=== PATIENT | male | born 1960 | race Caucasian/White ===

== ENCOUNTER 2018-12-04 16:42 | Inpatient (IN) | payer BC, OTHER ==
[2018-12-04] MEDS: SOD CHLORIDE 0.9% 500 ML IV (17:17)
[2018-12-04] MEDS: KETOROLAC 15 MG INJ IV (17:18)
[2018-12-04 17:19] LABS: ADD MAN DIFF? NO
[2018-12-04 17:25] LABS: BASOPHIL # 0.1 10^3/ul (0.0-0.1); BASOPHILS % 0.5 % (0.0-2.0); EOSINOPHILS % 0.2 % (0.0-7.0); HEMATOCRIT 39.7 % (42.0-52.0); HEMOGLOBIN 13.8 g/dl (14.0-18.0); LYMPHOCYTES # 1.9 10^3/ul (0.8-2.9); LYMPHOCYTES % 10.9 % (15.0-51.0); MEAN CORPUSCULAR HEMOGLOBIN 30.7 pg (29.0-33.0); MEAN CORPUSCULAR HGB CONC 34.8 g/dl (32.0-37.0); MEAN CORPUSCULAR VOLUME 88.2 fl (82.0-101.0); MEAN PLATELET VOLUME 10.2 fl (7.4-10.4); MONOCYTE # 1.3 10^3/ul (0.3-0.9); MONOCYTES % 7.3 % (0.0-11.0); NEUTROPHIL # 14.2 10^3/ul (1.6-7.5); NEUTROPHILS % 80.5 % (39.0-77.0); PLATELET COUNT 277 10^3/UL (140-415)
[2018-12-04 17:25] LABS: WHITE BLOOD COUNT 17.6 10^3/ul (4.8-10.8)
[2018-12-04] MEDS: ONDANSETRON 4 MG INJ IV (17:41)
[2018-12-04] MEDS: HYDROmorphONE 1 MG/ML SYG IV (17:41)
[2018-12-04 17:51] LABS: ALANINE AMINOTRANSFERASE 30 IU/L (13-69); ALBUMIN 4.3 g/dl (3.3-4.9); ALBUMIN/GLOBULIN RATIO 1.19; ALKALINE PHOSPHATASE 47 IU/L (42-121); ANION GAP 12 (5-13); ASPARTATE AMINO TRANSFERASE 31 IU/L (15-46); BILIRUBIN,INDIRECT 0.5 mg/dl (0-1.1); BILIRUBIN,TOTAL 0.5 mg/dl (0.2-1.3); BLOOD UREA NITROGEN 20 mg/dl (7-20); CALCIUM 10.2 mg/dl (8.4-10.2); CARBON DIOXIDE 21 mmol/L (21-31); CHLORIDE 105 mmol/L (97-110); CREATININE 0.93 mg/dl (0.61-1.24); Estimated GFR > 60 mL/min (>60); GLUCOSE 326 mg/dl (70-220); LIPASE 40 U/L (23-300); SODIUM 138 mmol/L (135-144); TOTAL PROTEIN 7.9 g/dl (6.1-8.1)
[2018-12-04 17:59] LABS: TROPONIN-I < 0.012 ng/ml (0.000-0.120)
[2018-12-04] MEDS ORDERED: NACL 0.9% 3 ML SYG IV (19:00)
[2018-12-04] MEDS ORDERED: NITROGLYCERIN (SL) 0.4 MG TAB SL (19:00)
[2018-12-04] MEDS ORDERED: ONDANSETRON 4 MG INJ IV (19:00)
[2018-12-04] MEDS ORDERED: ACETAMINOPHEN 325 MG TAB PO (19:00)
[2018-12-04] MEDS: ENALAPRILAT 1.25 MG INJ IV (19:05)
[2018-12-04] MEDS: LABETALOL 100 MG TAB PO (20:45)
[2018-12-04] MEDS: LISINOPRIL 20 MG TAB PO (21:26)
[2018-12-04] MEDS: AMLODIPINE 5 MG TAB PO (21:27)
[2018-12-04] MEDS: LORAZEPAM 2 MG INJ IV (21:36)
[2018-12-04] MEDS: LORAZEPAM 0.5 MG TAB PO (21:40)
[2018-12-04] MEDS: hydrALAzine 20 MG INJ IV (21:42)
[2018-12-04] MEDS: HYDROCODONE/APAP (5/325) TAB PO (22:28)
[2018-12-04] MEDS: morphine 2 MG INJ IV (23:28)
[2018-12-04] MEDS ORDERED: DEXTROSE 50% 50 ML SYRINGE IV ×2 (23:30)
[2018-12-04] MEDS ORDERED: GLUCAGON 1 MG INJ IM (23:30)
[2018-12-04] MEDS ORDERED: GLUCOSE GEL 15 GRAM TUBE PO ×2 (23:30)
[2018-12-04] MEDS ORDERED: GLUCOSE GEL 15 GRAM TUBE BUCCAL (23:30)
[2018-12-05 01:33] LABS: TROPONIN-I 0.168 ng/ml (0.000-0.120)
[2018-12-05] MEDS: ACCU-CHEK XX (02:00)
[2018-12-05] MEDS ORDERED: ENOXAPARIN 100 MG/ML SYG SC (02:30)
[2018-12-05] MEDS: ENOXAPARIN 80 MG/0.8 ML SYG SC (02:33)
[2018-12-05 06:11] LABS: ADD MAN DIFF? NO
[2018-12-05 06:23] LABS: WHITE BLOOD COUNT 12.9 10^3/ul (4.8-10.8)
[2018-12-05 06:23] LABS: BASOPHIL # 0.1 10^3/ul (0.0-0.1); BASOPHILS % 0.5 % (0.0-2.0); EOSINOPHILS # 0.1 10^3/ul (0.0-0.5); EOSINOPHILS % 0.5 % (0.0-7.0); HEMATOCRIT 39.5 % (42.0-52.0); HEMOGLOBIN 13.5 g/dl (14.0-18.0); LYMPHOCYTES # 2.9 10^3/ul (0.8-2.9); LYMPHOCYTES % 22.6 % (15.0-51.0); MEAN CORPUSCULAR HEMOGLOBIN 29.9 pg (29.0-33.0); MEAN CORPUSCULAR HGB CONC 34.2 g/dl (32.0-37.0); MEAN CORPUSCULAR VOLUME 87.6 fl (82.0-101.0); MEAN PLATELET VOLUME 10.1 fl (7.4-10.4); MONOCYTE # 1.5 10^3/ul (0.3-0.9); MONOCYTES % 11.2 % (0.0-11.0); NEUTROPHIL # 8.4 10^3/ul (1.6-7.5); NEUTROPHILS % 64.8 % (39.0-77.0); PLATELET COUNT 296 10^3/UL (140-415); RED BLOOD COUNT 4.51 10^6/ul (4.70-6.10); RED CELL DISTRIBUTION WIDTH 12.3 % (11.5-14.5)
[2018-12-05 06:27] LABS: HEMOGLOBIN A1C 10.7 % (0-5.9)
[2018-12-05 07:18] LABS: ALANINE AMINOTRANSFERASE 34 IU/L (13-69); ALBUMIN 3.9 g/dl (3.3-4.9); ALKALINE PHOSPHATASE 55 IU/L (42-121); ANION GAP 9 (5-13); ASPARTATE AMINO TRANSFERASE 56 IU/L (15-46); BILIRUBIN,INDIRECT 0.4 mg/dl (0-1.1); BILIRUBIN,TOTAL 0.4 mg/dl (0.2-1.3); BLOOD UREA NITROGEN 21 mg/dl (7-20); CALCIUM 9.9 mg/dl (8.4-10.2); CARBON DIOXIDE 21 mmol/L (21-31); CHLORIDE 105 mmol/L (97-110); CREATININE 0.84 mg/dl (0.61-1.24); Estimated GFR > 60 mL/min (>60); GLUCOSE 366 mg/dl (70-220); MAGNESIUM 1.5 mg/dl (1.7-2.5); POTASSIUM 4.3 mmol/L (3.5-5.1); SODIUM 135 mmol/L (135-144); TOTAL PROTEIN 6.5 g/dl (6.1-8.1)
[2018-12-05] MEDS: LISINOPRIL 20 MG TAB PO (08:11)
[2018-12-05] MEDS: AMLODIPINE 5 MG TAB PO (08:11)
[2018-12-05] MEDS: ASPIRIN (EC) 81 MG TAB PO (08:11)
[2018-12-05] MEDS: morphine 2 MG INJ IV (08:12)
[2018-12-05] MEDS: INSULIN ASPART [NOVOLOG] 3 ML PEN SC (08:49)
== END 2018-12-05 12:42 | disposition left against medical advice (07) | DRG 282 ==
LOC: E/R 16:42 → 6WM 18:43
DX: I21.4 Non-ST elevation (NSTEMI) myocardial infarction (principal); E11.51 Type 2 diabetes mellitus with diabetic peripheral angiopathy without gangrene; E11.65 Type 2 diabetes mellitus with hyperglycemia; I10 Essential (primary) hypertension; I25.10 Atherosclerotic heart disease of native coronary artery without angina pectoris; E78.5 Hyperlipidemia, unspecified; R07.9 Chest pain, unspecified; F17.200 Nicotine dependence, unspecified, uncomplicated; Z79.4 Long term (current) use of insulin; Z79.82 Long term (current) use of aspirin; I25.2 Old myocardial infarction
CPT/HCPCS: 36415; 71045; 80053; 82553; 82962; 83036; 83690; 83735; 84484; 85025; 93005; 93306; 96374; 96375; 99285-25